=== PATIENT | female | born 1995 | race Caucasian/White ===

== ENCOUNTER 2021-11-05 03:03 | Inpatient (IN) | payer OTHER, MEDICAID ==
[~2021-11-05] VITALS: Ht 157.5 cm; Wt 81.5 kg
[2021-11-05] VITALS (50 sets, daily range): BP systolic 79–152; BP diastolic 43–99
[2021-11-05] MEDS ORDERED: ALBU2TA PO (03:17)
[2021-11-05] MEDS ORDERED: PREN1CHW PO (03:17)
[2021-11-05] MEDS ORDERED: ZYRTTAB8 PO (03:17)
[2021-11-05] MEDS ORDERED: PENICILLIN G POTASSIUM IV 5 MU in D5W MINI-BAG PLUS 100 ML IV STA (04:18)
[2021-11-05] MEDS ORDERED: BUTORPHANOL 2 MG/ML INJ (J0595) IV ONE (04:20)
[2021-11-05] MEDS ORDERED: OXYTOCIN DRIP 30 UNITS in IV 1 EA IV PRN ×4 (04:20)
[2021-11-05] MEDS ORDERED: PROMETHAZINE INJ 25 MG/ML VIAL (J2550) IV ONE (04:20)
[2021-11-05 04:49] LABS: HEMATOCRIT 42.3 % (36.0-47.0); HEMOGLOBIN 14.1 g/dl (12.0-15.5); MEAN CORPUSCULAR HEMOGLOBIN 27.6 pg (27.0-33.0); MEAN CORPUSCULAR HGB CONC 33.3 g/dl (32.0-36.5); MEAN CORPUSCULAR VOLUME 82.8 fl (80.0-96.0); PLATELET COUNT, AUTOMATED 268 10^3/uL (150-450); RED BLOOD COUNT 5.11 10^6/uL (4.00-5.40); WHITE BLOOD COUNT 11.7 10^3/uL (4.0-10.0)
[2021-11-05] MEDS: LR 1,000 ML IV SCH ×4 (04:50→23:47)
[2021-11-05] MEDS: PENICILLIN G POTASSIUM IV 2.5 MU in IV 1 EA IV SCH ×4 (09:07→20:58)
[2021-11-05] MEDS ORDERED: EPIP0.3I2 IM (11:09)
[2021-11-05] MEDS ORDERED: FENTANYL 2MCG/ML ROPIVACAINE 0.2% IN 0.9% NACL 100ML IVBAG As Ordered ONE (18:22)
[2021-11-05] MEDS: FENTANYL/ROPIVACAINE/NACL BAG 100 ML EPIDURAL SCH (19:12)
[2021-11-05] MEDS ORDERED: NALOXONE INJ 0.4MG/1ML VIAL (J2310 PER 1MG) IV PRN (19:30)
[2021-11-05] MEDS ORDERED: EPIDURAL/PCA KEYS XX PRN (19:30)
[2021-11-05] MEDS ORDERED: LACTATED RINGER'S 1000 ML IV PRN (19:30)
[2021-11-05] MEDS ORDERED: diphenhydrAMINE 50MG/ML VIAL (J1200) IV PRN (19:30)
[2021-11-05] MEDS ORDERED: ONDANSETRON 4MG/2ML VIAL IV PRN (19:30)
[2021-11-05] MEDS ORDERED: ePHEDrine SULFATE 25 MG/5 ML(5MG/ML) SYRINGE IV PRN (19:30)
[2021-11-05] MEDS ORDERED: EPIDURAL COMMENT XX SCH (19:30)
[2021-11-05] MEDS ORDERED: REFRIGERATOR IV KEYS XX PRN (19:30)
[2021-11-05] MEDS ORDERED: OXYTOCIN DRIP 30 UNITS in IV 1 EA IV SCH (23:00)
[2021-11-06] VITALS (34 sets, daily range): BP systolic 107–162; BP diastolic 55–96
[2021-11-06] MEDS ORDERED: diphenhydrAMINE 50MG/ML VIAL (J1200) IV ONE (00:35)
[2021-11-06] MEDS: PENICILLIN G POTASSIUM IV 2.5 MU in IV 1 EA IV SCH ×2 (01:24→07:05)
[2021-11-06] MEDS: FENTANYL/ROPIVACAINE/NACL BAG 100 ML EPIDURAL SCH (03:10)
[2021-11-06] MEDS: LR 1,000 ML IV SCH (04:41)
[2021-11-06] MEDS ORDERED: LIDOCAINE 1% MDV 20ML VIAL As Ordered ONE (07:34)
[2021-11-06] MEDS ORDERED: LIDOCAINE 1% MDV 20ML VIAL INFIL ONE (08:35)
[2021-11-06] MEDS ORDERED: IBUPROFEN 600MG TAB PO PRN (08:40)
[2021-11-06] MEDS ORDERED: ONDANSETRON 4MG/2ML VIAL IV PRN (08:40)
[2021-11-06] MEDS ORDERED: MEASLES,MUMPS,RUBELLA VACCINE INJ (MMR-II) (90707) SC SCH (08:40)
[2021-11-06] MEDS ORDERED: OXYTOCIN DRIP 30 UNITS in IV 1 EA IV SCH ×4 (08:40)
[2021-11-06] MEDS ORDERED: ACETAMINOPHEN TAB 650MG DOSE (2X325MG) PO PRN (08:40)
[2021-11-06] MEDS ORDERED: ANUSOL HC CREAM 30GM TOP PRN (08:40)
[2021-11-06] MEDS: ACETAMINOPHEN 500 MG TAB PO PRN ×2 (09:49→16:23)
[2021-11-06] MEDS: PRENATAL VITAMINS CHEWABLE TABLET PO SCH (10:02)
[2021-11-06] MEDS: DOCUSATE SODIUM 100MG CAPSULE PO SCH ×2 (10:02→19:45)
[2021-11-06] MEDS: DIBUCAINE 1% OINTMENT 30GM TOP PRN (11:13)
[2021-11-06] MEDS: IBUPROFEN 800 MG TAB PO PRN ×2 (11:14→19:48)
[2021-11-07] MEDS: ACETAMINOPHEN 500 MG TAB PO PRN ×3 (02:55→21:16)
[2021-11-07 06:00] VITALS: BP 123/57
[2021-11-07] MEDS: DOCUSATE SODIUM 100MG CAPSULE PO SCH ×2 (07:43→21:15)
[2021-11-07] MEDS: IBUPROFEN 800 MG TAB PO PRN ×2 (07:43→16:16)
[2021-11-07] MEDS: PRENATAL VITAMINS CHEWABLE TABLET PO SCH (07:43)
[2021-11-07] MEDS: DIBUCAINE 1% OINTMENT 30GM TOP PRN (10:44)
[2021-11-07 18:00] VITALS: BP 133/76
[2021-11-07 22:35] VITALS: BP 128/69
[2021-11-08] MEDS: ACETAMINOPHEN 500 MG TAB PO PRN (04:41)
[2021-11-08] MEDS ORDERED: ACET-683 PO (04:44)
[2021-11-08] MEDS ORDERED: IBUP80TA PO (04:44)
[2021-11-08 05:47] VITALS: BP 112/62
[2021-11-08] MEDS: IBUPROFEN 800 MG TAB PO PRN ×2 (06:16→17:32)
[2021-11-08 08:15] VITALS: BP 112/62
[2021-11-08] MEDS: DOCUSATE SODIUM 100MG CAPSULE PO SCH (09:42)
[2021-11-08] MEDS: PRENATAL VITAMINS CHEWABLE TABLET PO SCH (09:42)
== END 2021-11-08 18:10 | disposition home or self-care (01) | DRG 807 ==
LOC: M LDO 03:03 → M LDI 05:01 → M OBS 11-06 10:37
PROVIDERS: ADMIT Obstetrics & Gynecology; ATTEND Obstetrics & Gynecology
PROC: 10E0XZZ Delivery of Products of Conception, External Approach (ICD-10-PCS; principal; 2021-11-06)
PROC: 0KQM0ZZ Repair Perineum Muscle, Open Approach (ICD-10-PCS; 2021-11-06)
DX: O99.52 Diseases of the respiratory system complicating childbirth (principal); Z37.0 Single live birth; Z3A.38 38 weeks gestation of pregnancy; Z91.018 Allergy to other foods; O99.824 Streptococcus B carrier state complicating childbirth; J45.909 Unspecified asthma, uncomplicated; O99.214 Obesity complicating childbirth; E66.9 Obesity, unspecified; O76 Abnormality in fetal heart rate and rhythm complicating labor and delivery; O32.6XX0 Maternal care for compound presentation, not applicable or unspecified; O77.0 Labor and delivery complicated by meconium in amniotic fluid; O70.1 Second degree perineal laceration during delivery

== ENCOUNTER → 2022-10-27 | Outpatient (REF) | payer OTHER ==
[~2022-10-27] MED LIST: ACET-683 PO; ALBU2TA PO; EPIP0.3I2 IM; IBUP80TA PO; PREN1CHW PO; ZYRTTAB8 PO
[2022-10-27 21:47] LABS: URINE PREG TEST NEGATIVE (NEGATIVE)
[2022-10-27 22:05] LABS: APPEARANCE, URINE HAZY (CLEAR); BACTERIA, URINE AUTO 1+ (NEGATIVE); BILIRUBIN, URINE AUTO NEGATIVE (NEGATIVE); BLOOD, URINE BLOOD NEGATIVE (NEGATIVE); COLOR, URINE YELLOW (YELLOW); GLUCOSE, URINE (UA) AUTO NEGATIVE (NEGATIVE); KETONE, URINE AUTO TRACE mg/dL (NEGATIVE); LEUKOCYTE ESTERASE, URINE AUTO TRACE (NEGATIVE); MUCUS, URINE SMALL (NEGATIVE); NITRITE, URINE AUTO NEGATIVE (NEGATIVE); PROTEIN, URINE AUTO 1+ mg/dL (NEGATIVE); RBC, URINE AUTO 5 /HPF (0-3); SPECIFIC GRAVITY URINE AUTO 1.029 (1.002-1.035); SQUAMOUS EPITHELIAL CELL UR AU 16 /HPF (0-6); UROBILINOGEN, URINE AUTO 0.2 mg/dL (0.0-2.0); WBC, URINE AUTO 2 /HPF (0-3)
== END ==
LOC: M LAB REF 21:29
PROVIDERS: ATTEND Physician Assistant
DX: N39.0 Urinary tract infection, site not specified (principal)

== ENCOUNTER 2023-01-04 13:37 | Observation (INO) | payer OTHER ==
[~2023-01-04] VITALS: Ht 157.5 cm; Wt 70.2 kg
[~2023-01-04 13:37] MED LIST changes: -ALBU2TA PO; +ALBU2TAB13 PO
[2023-01-04] MEDS ORDERED: ALBUTEROL SULFATE 2.5MG/0.5ML INH NEB SOLN NEB ONE (13:55)
[2023-01-04] MEDS ORDERED: ACETAMINOPHEN TAB 650MG DOSE (2X325MG) PO ONE (13:55)
[2023-01-04] MEDS ORDERED: methylPREDNISolone 125MG 2ML VIAL IV ONE (14:00)
[2023-01-04 14:12] LABS: ABG BASE EXCESS -4.2 (-2.0-2.0); ABG HCO3 15.4 MMOL/L (22.0-26.0); ABG O2 SATURATION 99.6 % (95.0-99.0); ABG PARTIAL PRESSURE O2 220.2 mmHg (75.0-100.0); ABG STANDARD HCO3 21.1 MMOL/L. (22.0-26.0); ABG TOTAL CO2 15.9 MMOL/L (22.0-29.0); ABG pH (ARTERIAL) 7.552 UNITS (7.350-7.450)
[2023-01-04 14:13] LABS: BASO # 0.1 10^3/uL (0.0-0.2); BASO % 0.5 % (0.0-1.0); EOS # 0.3 10^3/uL (0.0-0.5); EOS % 1.7 % (0.0-3.0); HEMATOCRIT 45.2 % (36.0-47.0); LYMPH # 2.8 10^3/uL (1.5-5.0); LYMPH % 16.7 % (24.0-44.0); MEAN CORPUSCULAR HEMOGLOBIN 27.4 pg (27.0-33.0); MEAN CORPUSCULAR HGB CONC 33.2 g/dl (32.0-36.5); MEAN CORPUSCULAR VOLUME 82.6 fl (80.0-96.0); MONO # 0.9 10^3/uL (0.0-0.8); MONO % 5.3 % (2.0-8.0); NEUTROPHILS # 12.6 10^3/uL (1.5-8.5); NEUTROPHILS % 75.5 % (36.0-66.0); PLATELET COUNT, AUTOMATED 267 10^3/uL (150-450); RED BLOOD COUNT 5.47 10^6/uL (4.00-5.40); WHITE BLOOD COUNT 16.7 10^3/uL (4.0-10.0)
[2023-01-04 14:15] LABS: ABG PARTIAL PRESSURE CO2 17.9 mmHg (35.0-45.0)
[2023-01-04] MEDS ORDERED: cefTRIAXone SOD 2 GM in D5W MINI-BAG PLUS 50 ML IV ONE (14:20)
[2023-01-04 14:54] LABS: HCG, SERUM QUALITATIVE NEGATIVE (NEGATIVE); THYROID STIMULATING HORMONE 1.656 uIU/ML (0.55-4.78)
[2023-01-04 14:56] LABS: ALKALINE PHOSPHATASE 85 U/L (46-116); ALT/SGPT 20 U/L (7.0-40); AST/SGOT 36 U/L (<34); BILIRUBIN,DIRECT 0.2 MG/DL (<0.4); BILIRUBIN,TOTAL 0.9 MG/DL (0.3-1.2); BLOOD UREA NITROGEN 5 MG/DL (9-23); CALCIUM LEVEL 8.8 MG/DL (8.5-10.1); CARBON DIOXIDE LEVEL 22 MMOL/L (20-31); CHLORIDE LEVEL 104 MMOL/L (98-107); CK-MB VALUE MASS < 1.0 NG/ML (<3.6); CPK CREATINE PHOSPHOKINASE 82 U/L (34-145); CREATININE FOR GFR 0.71 MG/DL (0.55-1.30); FREE T4 0.85 NG/DL (0.89-1.76); GLOMERULAR FILTRATION RATE > 60.0 (>60); GLUCOSE, FASTING 85 MG/DL (60-100); MB/CK RELATIVE INDEX 1.21 (< OR =4); POTASSIUM SERUM 4.2 MMOL/L (3.5-5.1); SODIUM LEVEL 134 MMOL/L (136-145); TOTAL PROTEIN 7.5 G/DL (5.7-8.2)
[2023-01-04] MEDS ORDERED: ISOVUE-370 76% 100ML VIAL As Ordered ONE (15:20)
[2023-01-04 17:46] LABS: VENOUS BASE EXCESS -2.8 (-2.0-2.0); VENOUS HCO3 21.3 MMOL/L (23.0-27.0); VENOUS O2 SATURATION 86.2 % (60.0-80.0); VENOUS PARTIAL PRESSURE CO2 35.5 mmHg (38.0-50.0); VENOUS PARTIAL PRESSURE O2 50.4 mmHg (30.0-50.0); VENOUS PH 7.396 UNITS (7.330-7.430); VENOUS STANDARD HCO3 21.9 MMOL/L; VENOUS TOTAL CO2 22.4 MMOL/L (24.0-28.0)
[2023-01-04] MEDS ORDERED: HEPARIN SOD (PORCINE) 5000UNITS/ML 1ML VIAL/SYRINGE SQ SCH (18:00)
[2023-01-04] MEDS ORDERED: LORA-930 PO (18:11)
[2023-01-04] MEDS ORDERED: IBUP200C29 PO (18:11)
[2023-01-04] MEDS ORDERED: ACET-683 PO (18:11)
[2023-01-04] MEDS ORDERED: ALBU8.5H INH (18:13)
[2023-01-04] MEDS ORDERED: HOME MED LIST COMPLETE! XX SCH (18:15)
[2023-01-04] MEDS ORDERED: AZITHROMYCIN INJ 500 MG, VIAL MATE ADAPTER 1 EACH in NS 250 ML IV SCH (19:00)
[2023-01-04] MEDS ORDERED: ACETAMINOPHEN 500 MG TAB PO PRN (19:10)
[2023-01-04] MEDS ORDERED: ALBUTEROL 90 MCG/ACT 8GM HFA INHALER INH PRN (19:10)
[2023-01-04 21:30] VITALS: BP 125/77
[2023-01-04] MEDS: LORATADINE 10 MG TAB PO SCH (21:49)
[2023-01-05] VITALS (9 sets, daily range): BP systolic 100–120; BP diastolic 61–73
[2023-01-05 06:27] LABS: HEMATOCRIT 41.1 % (36.0-47.0); HEMOGLOBIN 13.6 g/dl (12.0-15.5); MEAN CORPUSCULAR HEMOGLOBIN 27.4 pg (27.0-33.0); MEAN CORPUSCULAR HGB CONC 33.1 g/dl (32.0-36.5); MEAN CORPUSCULAR VOLUME 82.9 fl (80.0-96.0); PLATELET COUNT, AUTOMATED 262 10^3/uL (150-450); RED BLOOD COUNT 4.96 10^6/uL (4.00-5.40); WHITE BLOOD COUNT 17.7 10^3/uL (4.0-10.0)
[2023-01-05 07:05] LABS: BLOOD UREA NITROGEN 10 MG/DL (9-23); CALCIUM LEVEL 8.7 MG/DL (8.5-10.1); CARBON DIOXIDE LEVEL 22 MMOL/L (20-31); CHLORIDE LEVEL 107 MMOL/L (98-107); CREATININE FOR GFR 0.56 MG/DL (0.55-1.30); GLOMERULAR FILTRATION RATE > 60.0 (>60); GLUCOSE, FASTING 126 MG/DL (60-100); POTASSIUM SERUM 4.2 MMOL/L (3.5-5.1); SODIUM LEVEL 138 MMOL/L (136-145)
[2023-01-05] MEDS ORDERED: ALBUTEROL SULFATE 2.5MG/0.5ML INH NEB SOLN NEB STA (07:56)
[2023-01-05] MEDS: ALBUTEROL 90 MCG/ACT 8GM HFA INHALER INH SCH ×2 (08:00→12:00)
[2023-01-05] MEDS: SYMBICORT 160/4.5MCG INHALER 6GM INH SCH ×2 (08:00→20:05)
[2023-01-05] MEDS: predniSONE 50 MG TAB PO SCH (08:06)
[2023-01-05] MEDS: ENOXAPARIN 40MG/0.4ML SYRINGE (J1650 PER 10MG) SC SCH (08:07)
[2023-01-05] MEDS: AZITHROMYCIN 250MG TABLET PO SCH (08:35)
[2023-01-05] MEDS ORDERED: ALBUTEROL SULFATE 2.5MG/0.5ML INH NEB SOLN NEB PRN ×2 (08:55→12:45)
[2023-01-05] MEDS ORDERED: LEVALBUTEROL 1.25MG 0.5ML CONCENTRATE NEB INH SCH (14:00)
[2023-01-05] MEDS: ALBUTEROL SULFATE 2.5MG/0.5ML INH NEB SOLN NEB SCH ×2 (14:30→20:05)
[2023-01-05] MEDS ORDERED: cefTRIAXone SOD 2 GM in D5W MINI-BAG PLUS 50 ML IV SCH (16:00)
[2023-01-05] MEDS ORDERED: IPRATROPIUM 0.02% SOLN 0.5MG 2.5ML NEB INH SCH (20:00)
[2023-01-05] MEDS: LORATADINE 10 MG TAB PO SCH (20:17)
[2023-01-05] MEDS ORDERED: NS 500 ML IV ONE ×2 (21:25→22:30)
[2023-01-05] MEDS: guaiFENesin ER 600 MG TAB PO SCH (21:38)
[2023-01-05] MEDS ORDERED: NS 1,000 ML IV ONE (22:30)
[2023-01-06] MEDS: LEVALBUTEROL HFA 45MCG/ACT 15GM INHALER INH SCH ×2 (01:20→07:53)
[2023-01-06 02:00] VITALS: BP_SYST 112; BP_SYST 125; BP_DIAS 68; BP_DIAS 77
[2023-01-06 05:29] VITALS: BP 107/60
[2023-01-06] MEDS: SYMBICORT 160/4.5MCG INHALER 6GM INH SCH (07:53)
[2023-01-06] MEDS: ENOXAPARIN 40MG/0.4ML SYRINGE (J1650 PER 10MG) SC SCH (08:10)
[2023-01-06] MEDS: AZITHROMYCIN 250MG TABLET PO SCH (08:10)
[2023-01-06] MEDS: guaiFENesin ER 600 MG TAB PO SCH (08:10)
[2023-01-06] MEDS: predniSONE 50 MG TAB PO SCH (08:10)
[2023-01-06 08:38] LABS: BLOOD UREA NITROGEN 6 MG/DL (9-23); CALCIUM LEVEL 7.6 MG/DL (8.5-10.1); CARBON DIOXIDE LEVEL 24 MMOL/L (20-31); CHLORIDE LEVEL 110 MMOL/L (98-107); CREATININE FOR GFR 0.56 MG/DL (0.55-1.30); GLOMERULAR FILTRATION RATE > 60.0 (>60); GLUCOSE, FASTING 89 MG/DL (60-100); POTASSIUM SERUM 3.5 MMOL/L (3.5-5.1); SODIUM LEVEL 142 MMOL/L (136-145)
[2023-01-06 08:39] LABS: BASO % 0.3 % (0.0-1.0); EOS % 0.3 % (0.0-3.0); HEMATOCRIT 35.4 % (36.0-47.0); LYMPH # 3.7 10^3/uL (1.5-5.0); MEAN CORPUSCULAR HEMOGLOBIN 27.5 pg (27.0-33.0); MEAN CORPUSCULAR HGB CONC 32.5 g/dl (32.0-36.5); MEAN CORPUSCULAR VOLUME 84.7 fl (80.0-96.0); MONO # 0.6 10^3/uL (0.0-0.8); MONO % 4.5 % (2.0-8.0); NEUTROPHILS # 8.4 10^3/uL (1.5-8.5); NEUTROPHILS % 65.5 % (36.0-66.0); PLATELET COUNT, AUTOMATED 239 10^3/uL (150-450); RED BLOOD COUNT 4.18 10^6/uL (4.00-5.40); WHITE BLOOD COUNT 12.8 10^3/uL (4.0-10.0)
[2023-01-06 08:47] LABS: HEMOGLOBIN 11.5 g/dl (12.0-15.5)
[2023-01-06 10:00] VITALS: BP 107/79
[2023-01-06] MEDS ORDERED: AZIT-12 PO (10:40)
[2023-01-06] MEDS ORDERED: SYMB16INH INH (10:41)
[2023-01-06] MEDS ORDERED: CEFD300CAP PO (10:41)
[2023-01-06] MEDS ORDERED: PRED50TA PO (10:41)
== END 2023-01-06 12:32 | disposition home or self-care (01) ==
LOC: M ED 13:37 → M ED INP 17:41 → ENRESERV 20:18 → M MSPAV 21:12
PROVIDERS: ADMIT Student in an Organized Health Care Education/Training Program; ATTEND Internal Medicine
DX: J18.9 Pneumonia, unspecified organism (principal); J45.901 Unspecified asthma with (acute) exacerbation; R00.0 Tachycardia, unspecified; R07.9 Chest pain, unspecified; R42 Dizziness and giddiness; R06.02 Shortness of breath; Z79.899 Other long term (current) drug therapy; Z91.010 Allergy to peanuts; Z91.018 Allergy to other foods; J30.81 Allergic rhinitis due to animal (cat) (dog) hair and dander; J30.89 Other allergic rhinitis
CPT/HCPCS: 36415; 36600; 51701; 71045; 71275; 80047; 80048; 80076; 81001; 82550; 82553; 82803; 83605; 83880; 84145; 84439; 84443; 84484; 84703; 85025; 85027; 87040; 87070; 87086; 87205; 87486; 87581; 87633; 87798; 93005; 93041; 94640; 94760; 96361; 96365; 96366; 96372; 96375; 99285; J0456; J0696; J1650; J2930; J7512; Q9967

== ENCOUNTER 2023-06-11 11:06 | Observation (INO) | payer OTHER ==
[~2023-06-11] VITALS: Ht 157.5 cm; Wt 75.3 kg
[~2023-06-11 11:06] MED LIST changes: +ALBU8.5H INH; +AZIT-12 PO; +CEFD300CAP PO; +IBUP200C29 PO; +LORA-930 PO; +PRED50TA PO; +SYMB16INH INH
[2023-06-11] MEDS ORDERED: FLUT1BLS17 (11:53)
[2023-06-11 12:03] LABS: BASO # 0.1 10^3/uL (0.0-0.2); BASO % 0.5 % (0.0-1.0); EOS % 6.7 % (0.0-3.0); HEMATOCRIT 40.1 % (36.0-47.0); HEMOGLOBIN 13.4 g/dl (12.0-15.5); LYMPH # 2.2 10^3/uL (1.5-5.0); LYMPH % 15.3 % (24.0-44.0); MEAN CORPUSCULAR HEMOGLOBIN 27.3 pg (27.0-33.0); MEAN CORPUSCULAR HGB CONC 33.4 g/dl (32.0-36.5); MEAN CORPUSCULAR VOLUME 81.7 fl (80.0-96.0); MONO % 6.8 % (2.0-8.0); NEUTROPHILS # 10.1 10^3/uL (1.5-8.5); NEUTROPHILS % 70.4 % (36.0-66.0); PLATELET COUNT, AUTOMATED 265 10^3/uL (150-450); RED BLOOD COUNT 4.91 10^6/uL (4.00-5.40); WHITE BLOOD COUNT 14.3 10^3/uL (4.0-10.0)
[2023-06-11] MEDS ORDERED: methylPREDNISolone 40MG 1ML VIAL IV ONE ×2 (12:25→17:50)
[2023-06-11] MEDS ORDERED: ALBUTEROL SULFATE 2.5MG/0.5ML INH NEB SOLN INH ONE (12:30)
[2023-06-11] MEDS ORDERED: IPRATROPIUM 0.5MG/ALBUTEROL 2.5MG INH SOL UD 3ML (DUONEB) NEB ONE ×2 (12:30→17:55)
[2023-06-11 12:31] LABS: ALBUMIN 3.6 G/DL (3.2-5.2); ALKALINE PHOSPHATASE 74 U/L (46-116); ALT/SGPT 23 U/L (7.0-40); AST/SGOT 17 U/L (<34); BILIRUBIN,DIRECT 0.2 MG/DL (<0.4); BILIRUBIN,TOTAL 0.7 MG/DL (0.3-1.2); BLOOD UREA NITROGEN 8 MG/DL (9-23); CALCIUM LEVEL 8.6 MG/DL (8.5-10.1); CARBON DIOXIDE LEVEL 24 MMOL/L (20-31); CHLORIDE LEVEL 108 MMOL/L (98-107); CREATININE FOR GFR 0.61 MG/DL (0.55-1.30); GLOMERULAR FILTRATION RATE > 60.0 (>60); GLUCOSE, FASTING 112 MG/DL (60-100); POTASSIUM SERUM 3.7 MMOL/L (3.5-5.1); SODIUM LEVEL 140 MMOL/L (136-145); TOTAL PROTEIN 6.5 G/DL (5.7-8.2)
[2023-06-11 12:33] LABS: THYROID STIMULATING HORMONE 2.985 uIU/ML (0.55-4.78)
[2023-06-11 12:35] LABS: HCG, SERUM QUALITATIVE NEGATIVE (NEGATIVE)
[2023-06-11 12:38] LABS: PROCALCITONIN <0.04 ng/ml
[2023-06-11] MEDS ORDERED: NS 1,000 ML IV ONE ×2 (14:35→18:25)
[2023-06-11] MEDS ORDERED: ISOVUE-370 76% 100ML VIAL As Ordered ONE (16:53)
[2023-06-11] MEDS ORDERED: IPRATROPIUM 0.02% SOLN 0.5MG 2.5ML NEB INH PRN (18:25)
[2023-06-11] MEDS ORDERED: MED REC IN PROGRESS XX SCH (19:05)
[2023-06-11] MEDS ORDERED: MONTELUKAST 10 MG TAB PO ONE (19:15)
[2023-06-11] MEDS ORDERED: CETI-24 PO (19:28)
[2023-06-11] MEDS ORDERED: EPIN0.3I11 IM (19:28)
[2023-06-11] MEDS ORDERED: HOME MED LIST COMPLETE! XX SCH (19:30)
[2023-06-11] MEDS: IPRATROPIUM 0.02% SOLN 0.5MG 2.5ML NEB INH SCH ×2 (20:00→22:11)
[2023-06-11] MEDS ORDERED: BUDESONIDE 180MCG INHALER (PULMICORT FLEXHALER) INH SCH (21:00)
[2023-06-11] MEDS: methylPREDNISolone 125MG 2ML VIAL IV SCH (21:24)
[2023-06-12] MEDS: IPRATROPIUM 0.02% SOLN 0.5MG 2.5ML NEB INH SCH (02:55)
[2023-06-12] MEDS: methylPREDNISolone 125MG 2ML VIAL IV SCH (04:43)
[2023-06-12] MEDS ORDERED: SYMBICORT 160/4.5MCG INHALER 6GM INH SCH (08:00)
[2023-06-12] MEDS ORDERED: MONTELUKAST 10 MG TAB PO SCH (09:00)
[2023-06-12 09:04] VITALS: O2SAT 98
[2023-06-12] MEDS: ALBUTEROL SULFATE 2.5MG/0.5ML INH NEB SOLN NEB SCH ×2 (09:04→12:18)
[2023-06-12] MEDS ORDERED: PRED20TA PO ×2 (11:05→14:32)
[2023-06-12] MEDS ORDERED: MONT10TA97 PO ×2 (11:05→14:32)
[2023-06-12] MEDS ORDERED: ALBU2.5V10 INH ×2 (11:05→14:32)
[2023-06-12] MEDS ORDERED: methylPREDNISolone 125MG 2ML VIAL IV SCH (12:00)
[2023-06-12 12:17] VITALS: O2SAT 98
[2023-06-12 12:54] VITALS: BP 109/65; TEMP 98.1; O2SAT 98
== END 2023-06-12 13:00 | disposition home or self-care (01) ==
LOC: M ED 11:06 → EDBD 11:06 → M ED INP 18:19 → ENRESERV 06-12 10:15
PROVIDERS: ADMIT Family Medicine; ATTEND Family Medicine
DX: J45.901 Unspecified asthma with (acute) exacerbation (principal); B97.89 Other viral agents as the cause of diseases classified elsewhere; R00.0 Tachycardia, unspecified; R51.9 Headache, unspecified; J30.2 Other seasonal allergic rhinitis; D72.10 Eosinophilia, unspecified; M54.9 Dorsalgia, unspecified; Z20.828 Contact with and (suspected) exposure to other viral communicable diseases; R06.02 Shortness of breath; Z82.5 Family history of asthma and other chronic lower respiratory diseases; Z91.010 Allergy to peanuts; Z91.018 Allergy to other foods; Z79.899 Other long term (current) drug therapy
CPT/HCPCS: 71045; 71275; 80048; 80076; 83605; 84145; 84443; 84703; 85025; 87040; 87486; 87581; 87633; 87798; 93005; 93041; 94640; 94760; 96361; 96374; 96376; 99285; J2920; J2930; Q9967

== ENCOUNTER → 2023-10-27 | Outpatient (CLI) | payer OTHER ==
[~2023-10-27] MED LIST changes: +ALBU2.5V10 INH; +BENZ200C70 PO; +CETI-24 PO; +EPIN0.3I11 IM; +FLUT1BLS17; +MONT10TA97 PO; +PRED20TA PO
== END ==
LOC: M LAB 15:21
PROVIDERS: ATTEND Internal Medicine Pulmonary Disease
DX: J45.50 Severe persistent asthma, uncomplicated (principal)